=== PATIENT | female | born 1980 | race Caucasian/White ===

== ENCOUNTER → 2017-10-22 | Outpatient (CLI) | payer OTHER ==
[~2017-10-22] VITALS: Ht 162.6 cm; Wt 113.6 kg
[~2017-10-22] MED LIST: ACCUNEB SO1.25 MG/1 NASAL; ALEVE220 M1 PO; BACTRIM DS TAB1 EACH PO; CHANTIX1 MG PO; DULERA 200 MCG/13 GM INH; HYDROCODON-ACE1 EAC5 PO; HYDROCODONE-AP1 EAC6 PO; HYDROCODONE-APA1 TA1 PO; IBUPROFEN 600600 M1 PO; IMITREX 50 MG T50 M1 PO; IMITREX 50 MG T50 MG PO; LAMICTAL 25 MG25 M1 PO; LORTAB 10 MG-3473 ML PO; LYRICA 75 MG CA75 MG PO; LYRICA225 MG PO; MELOXICAM7.5 MG PO; NEURONTIN 300300 M1 PO; NORCO 5-325 TA1 EACH PO; NORCO 7.5-3251 EACH PO; NORTRIPTYLINE H10 M1 PO; NORTRIPTYLINE H25 M3 PO; NUCYNTA75 MG PO; ONDANSETRON HCL4 M2 PO; PAMELOR25 MG PO; PROTONIX40 M2 PO; SLEEP PO; TRAMADOL 50 MG50 MG PO; TRAZODONE HCL50 MG PO; TREXIMET 85-501 EACH PO; VALIUM5 MG PO
--- NOTE | ~2017-10-22 | HPC ---
[facility] [address] [place] [address] PAIN MANAGEMENT CONSULTATION Name: SERGIO LIANG Bryan Room #: REG [facility].#: [id number] Admission: 10/22/17 Attend Phys: Timur Mosley DO Discharge: Date of : 78 Report #: [id number] THIS REPORT FOR: //name// CC: Shavon Mosley DATE OF SERVICE: 10/22/2017 REFERRING PHYSICIAN: Shavon Dimas MD. CHIEF COMPLAINT: Low back pain, right lower extremity pain and paresthesias. HISTORY OF PRESENT ILLNESS: As you know, the patient is a 37-year-old female who returns today in followup visit with continued low back pain, right lower extremity pain with paresthesias. The patient is placing pain score approximately 4-5/10. She states pain is chronic in nature, aching in sensation. Described pain is exacerbated with activities, bending, sitting, improves with lying down. She returns today in followup visit, denying any new injury or trauma, to undergo next in the series of epidural injections. She has had no medical changes in her since her last visit. She is taking similar medications. ALLERGIES: PENICILLIN, SULFA, TRIMETHOPRIM. CURRENT MEDICATIONS: Trazodone 50 mg p.o. at bedtime, pregabalin 225 mg once a day, Lamictal 25 mg p.o. at bedtime, Imitrex 50 mg p.r.n., Dulera 200 mcg/5 mcg inhaled twice a day. SOCIAL HISTORY: The patient denies current tobacco use. Denies IV or illicit drug use. Denies any chronic alcohol use. She is unaccompanied today. IMAGING: No new imaging available. PQRS: The patient denies any osteoarthritis, rheumatoid arthritis. She is not a fall risk, has not had a fall in the past 3 months. She denies history of hypertension. She is not provided opioids through our services and not contracted to our clinic. She is classified as at low risk for opioid addiction. PHYSICAL EXAMINATION: VITAL SIGNS: Blood pressure 138/81, pulse is 83, respiratory rate 16, unlabored. The patient is 97% on room air. Height 5 feet 4 inches tall, weight 250.4 pounds, BMI calculated 43. GENERAL: Well-developed, well-nourished, well-hydrated, class 3, morbidly obese 37-year-old female, appearing her stated age, pain is rated around 4-5/10. [place] [address] PAIN MANAGEMENT CONSULTATION Name: SERGIO LIANG Bryan Room #: REG [facility]#: [id number] Admission: 10/22/17 Attend Phys: Timur Mosley DO Discharge: Date of : 78 Report #: [id number] HEENT: Normocephalic, atraumatic. Pupils equal, round, reactive to light. Extraocular muscles are intact. Sclerae nonicteric without injection. NEUROLOGIC: Cranial nerves 2 through 12 grossly intact. Speech is fluent. EXTREMITIES: Show no clubbing, no cyanosis, no edema. MUSCULOSKELETAL: Seated straight leg raising negative. Supine straight leg raising mildly positive. Right REYNALDO test negative. Modified Gaenslen positive for axial back pain. Muscle bulk and tone equal and symmetrical in lower extremities. ASSESSMENT: 1. Symptomatic lumbar radiculopathy. 2. Displacement of lumbar intervertebral disk with radiculopathy. 3. Foraminal stenosis of the lumbar spine. 4. Lumbosacral spondylosis with radicular symptoms. 5. Chronic intractable pain. PLAN: 1. The patient returns today in followup visit requesting to undergo next in the series of epidural injections. The patient has received precertification to undergo the procedure. The patient has been advised of the risks and the benefits of these procedures. These risks include but are not necessarily limited to bleeding, bruising, infection, worsening pain, no relief of pain, also risk of temporary or permanent muscle weakness, temporary or permanent nerve damage, possible paralysis and . The patient states understood and wished to proceed. 2. No medication changes were made at today's visit. The patient will continue current medical therapy as previously prescribed. 3. We will see the patient back in followup visit on an as needed basis for possible next in a series of epidural injections. PROCEDURE NOTE DESCRIPTION OF PROCEDURE: Lumbar epidural steroid injection under fluoroscopic guidance. After obtaining written consent, the patient was taken back to fluoroscopy suite, placed in prone position with pillow under abdomen to decrease lumbar lordosis. Skin overlying lumbosacral area then prepped and draped in aseptic fashion. Lumbar intervertebral spaces were identified by AP fluoroscopy. Skin and subcutaneous tissue overlying target site of injection was anesthetized with 3 mL of 1% lidocaine. A 20-gauge 4-1/2 inch Tuohy needle advanced under fluoroscopic guidance towards the epidural space using a paramedian approach. Epidural space identified using loss of resistance to air technique. After negative aspiration for heme or cerebrospinal fluid, 1 mL of Omnipaque was injected. Lumbar epidurogram was [address] [address] PAIN MANAGEMENT CONSULTATION Name: SERGIO LIANG Room #: REG [facility]andra#: [id number] Admission: 10/22/17 Attend Phys: Timur Mosley DO Discharge: Date of : 78 Report #: [id number] confirmed using both AP and lateral fluoroscopy. After negative aspiration for heme or cerebrospinal fluid, 5 mL of a solution containing 2 mL 40 mg per mL, 80 mg total triamcinolone, 3 mL lidocaine 1% injected slowly. Needle retracted fpc, flushed with 1 mL of 1% lidocaine and removed. Sterile bandage placed over injection site. No new motor deficits present in lower extremity following procedure. The patient tolerated procedure well, carefully escorted to recovery room in stable condition. No apparent complications. After meeting discharge criteria, the patient is discharged home. <ELECTRONICALLY SIGNED> By: Timur Mosley DO 10/30/17 [id number] Timur Mosley DO /nt
[2017-10-22 11:05] VITALS: BP 138/81
== END | disposition home or self-care (01) ==
LOC: PAIN 07:12
DX: M51.16 Intervertebral disc disorders with radiculopathy, lumbar region (principal); G89.29 Other chronic pain; M48.061 Spinal stenosis, lumbar region without neurogenic claudication; M47.27 Other spondylosis with radiculopathy, lumbosacral region; Z88.0 Allergy status to penicillin; Z88.2 Allergy status to sulfonamides; Z88.8 Allergy status to other drugs, medicaments and biological substances; Z79.899 Other long term (current) drug therapy